=== PATIENT | female | born 1985 | race Caucasian/White ===

== ENCOUNTER → 2019-06-02 14:13 | Outpatient (CLI) | payer OTHER, SELFPAY ==
[2019-06-04 07:09] LABS: HIV Screen 4th Generation wRfx Non Reactive (Non Reactive)
[2019-06-05 16:29] LABS: Hepatitis C Antibody <0.1 s/co ratio (0.0-0.9)
[2019-06-05 16:32] LABS: Rapid Plasma Reagin Ab Titer Non Reactive (NonRea<1:1)
== END ==
PROVIDERS: Visit Provider Obstetrics & Gynecology
DX: Z20.2 Contact with and (suspected) exposure to infections with a predominantly sexual mode of transmission (principal)
CPT/HCPCS: 36415; 86592; 86703; 87380; G0432